=== PATIENT | male | born 1965 | race Caucasian/White ===

== ENCOUNTER 2022-05-20 19:11 | Inpatient (IN) | payer MEDICAID ==
[~2022-05-20] VITALS: Ht 177.8 cm; Wt 71.7 kg
--- NOTE | 2022-05-20 20:00 | NUR ---
PT [id number] FROM STREETS C/O LEFT SIDE HIP PAIN FROM ABSCESS. UNABLE TO AMBULATE D/T PAIN. PT IS A/O X 4, RR EVEN AND UNLABORED NO SOB NOTED. PT TO ER BED 12. PT CONNECTED TO CARDIAC AND POX MONITORS.
[2022-05-20] MEDS ORDERED: IOHEXOL-300 100 ML VIAL IV ONE (20:20)
[2022-05-20] MEDS ORDERED: VANCOMYCIN 1 GM in IV D5W 250 ML IV ONE (20:30)
[2022-05-20] MEDS ORDERED: PIPERACILLIN /TAZOBACTAM 3.375 G in IV D5W 50 ML IV ONE (20:30)
[2022-05-20] MEDS ORDERED: IV NS 0.9% 1,000 ML BAG IV ONE ×2 (20:30)
[2022-05-20] MEDS ORDERED: ONDANSETRON HCL/PF 4 MG/2 ML VIAL IVP ONE (20:30)
[2022-05-20] MEDS ORDERED: MORPHINE SULFATE INJ 2 MG/ML DISP.SYRIN IV ONE (20:30)
[2022-05-20] MEDS ORDERED: ONDANSETRON HCL/PF 4 MG/2 ML VIAL ONE (20:47)
[2022-05-20] MEDS ORDERED: PIPERACILLIN /TAZOBACTAM 3.375 G VIAL IV ONE (20:47)
[2022-05-20] MEDS ORDERED: MORPHINE SULFATE INJ 4 MG/ML DISP.SYRIN ONE (20:47)
--- NOTE | 2022-05-20 21:08 | NUR ---
COVID SWAB COLLECTED SENT TO LAB
--- NOTE | 2022-05-20 21:09 | NUR ---
PATIENT TAKEN TO CT
[2022-05-20 21:10] LABS: BASOPHILS % (AUTO) 0.2 % (0.0-2.0); EOSINOPHILS % (AUTO) 0.5 % (0.0-6.0); HEMATOCRIT 45 % (39-51); HEMOGLOBIN 15.1 g/dL (13.5-17.5); LYMPHOCYTES # (AUTO) 1.1 K/uL (0.8-4.8); LYMPHOCYTES % (AUTO) 10.7 % (20.0-44.0); MEAN CORPUSCULAR HGB CONC 34 g/dl (31.0-36.0); MEAN CORPUSCULAR VOLUME 85 fL (80-96); MONOCYTES # (AUTO) 0.9 K/uL (0.1-1.30); MONOCYTES % (AUTO) 8.9 % (2.0-12.0); NEUTROPHILS # (AUTO) 8.3 K/uL (1.8-8.9); NEUTROPHILS % (AUTO) 79.7 % (43.0-81.0); PLATELET COUNT (AUTO) 326 K/uL (150-450); RED BLOOD CELL COUNT(AUTO) 5.23 MIL/uL (4.5-6.0); WHITE BLOOD COUNT (AUTO) 10.5 K/uL (4.3-11.0)
[2022-05-20 21:40] LABS: ALANINE AMINOTRANSFERASE 57 U/L (12-78); ALBUMIN 2.7 g/dL (3.4-5.0); ALKALINE PHOSPHATASE 122 U/L (46-116); ASPARTATE AMINOTRANSFERASE 54 U/L (15-37); BILIRUBIN,DIRECT 0.2 mg/dL (0.0-0.2); BILIRUBIN,TOTAL 0.7 mg/dL (0.2-1.0); CALCIUM, SERUM 9.2 mg/dL (8.5-10.1); CARBON DIOXIDE 27 mmol/L (21-32); CHLORIDE 98 mmol/L (98-107); CREATININE 1.2 mg/dL (0.6-1.3); GLUCOSE 109 mg/dL (74-106); SODIUM SERUM 132 mmol/L (136-145); TOTAL PROTEIN, SERUM 8.9 g/dL (6.4-8.2)
[2022-05-20 21:51] LABS: UREA NITROGEN, BLOOD 23 mg/dL (7-18)
[2022-05-20] MEDS ORDERED: VANCOMYCIN 1 GM VIAL ONE (22:07)
[2022-05-20] MEDS ORDERED: MAG HYDROX/AL HYDROX/SIMETH 30 ML UDC PO PRN (23:30)
[2022-05-20] MEDS ORDERED: MAGNESIUM HYDROXIDE 30 ML UDC PO PRN (23:30)
[2022-05-20] MEDS ORDERED: Z GUARD REMEDY 4 OZ OINT TP PRN (23:30)
[2022-05-20] MEDS ORDERED: ACETAMINOPHEN 325 MG TABLET PO PRN (23:30)
[2022-05-20] MEDS ORDERED: ZOLPIDEM TARTRATE 5 MG TABLET PO PRN (23:30)
[2022-05-20] MEDS ORDERED: ONDANSETRON HCL/PF 4 MG/2 ML VIAL IVP PRN (23:30)
[2022-05-21] MEDS: HYDROCODONE/APAP 10/325MG TABLET PO PRN (00:04)
--- NOTE | 2022-05-21 00:04 | NUR ---
RECEIVING TEAM MEMBER AT PT'S BEDSIDE
--- NOTE | 2022-05-21 00:04 | NUR ---
EMMANUEL MCELROY INDUCTOR TESTER AT PT'S BEDSIDE
[2022-05-21] MEDS ORDERED: LORAZEPAM INJ 2 MG/ML VIAL IV PRN (01:30)
[2022-05-21] MEDS ORDERED: PIPERACILLIN /TAZOBACTAM 3.375 G in IV D5W 50 ML IV ONE (03:00)
[2022-05-21] MEDS ORDERED: HYDROMORPHONE 1 MG/1 ML DISP.SYRIN ONE (03:34)
[2022-05-21] MEDS ORDERED: PIPERACILLIN /TAZOBACTAM 3.375 G VIAL IV ONE (03:34)
[2022-05-21] MEDS: IV NS 0.9% 1,000 ML IV PRN ×2 (03:49→09:21)
[2022-05-21] MEDS: HYDROMORPHONE INJ 2 MG/ML DISP.SYRIN IV PRN ×5 (03:49→21:19)
[2022-05-21] MEDS ORDERED: HIV MED (08:11)
--- NOTE | 2022-05-21 08:11 | NUR ---
report given to Nolan CROUCH to continue care.
[2022-05-21 09:00] VITALS: BP 102/64
--- NOTE | 2022-05-21 09:22 | NUR ---
RN NOTES PT C/O OF SHARP LEFT HIP PAIN, 10/10 SCALE. PRN DILAUDID 1MG/0.5ML IVP ADMINISTERED AT 0920 . WILL CONTINUE TO MONITOR AND REASSESS PT.
--- NOTE | 2022-05-21 10:00 | NUR ---
MS RN ADMITTING NOTES ADMITTED A 57 Y/O MALE TO UNIT AT 0845 VIA GURNEY WITH DX OF LEFT HIP ABSCESS. PT IS A/O X4 AND ABLE TO MAKE NEEDS KNOWN. ORIENTED TO ROOM AND STAFF. V/S TAKEN, STABLE AND RECORDED. PT ON ROOM AIR, TOLERATING WELL, WITH NO ACUTE RESPIRATORY DISTRESS NOTED. IV ACCESS NOTED ON LEFT AC G# 20, IVF OF NS @ 125ML/HR STARTED, NO S/S OF INFILTRATION AT SITE NOTED. LUNGS CLEAR ON AUSCULTATION BILATERALLY. ABDOMEN SOFT, NON TENDER AND NON-DISTENDED WITH + BOWELS SOUNDS ON FOR QUADRANTS. PHOTOS OF SKIN ISSUES TAKEN AND FILED ON HIS CHART. SAFETY MEASURES IMPLEMENTED: BED PLACED IN LOWEST LOCKED POSITION WITH SR UP X2. TRAY TABLE AND CALL LIGHT W/I EASY REACH OF PT. WILL CONTINUE TO MONITOR PT.
[2022-05-21 10:30] LABS: BASOPHILS % (AUTO) 0.2 % (0.0-2.0); HEMATOCRIT 36 % (39-51); HEMOGLOBIN 12.3 g/dL (13.5-17.5); LYMPHOCYTES # (AUTO) 0.6 K/uL (0.8-4.8); LYMPHOCYTES % (AUTO) 6.6 % (20.0-44.0); MEAN CORPUSCULAR HGB CONC 34 g/dl (31.0-36.0); MEAN CORPUSCULAR VOLUME 84 fL (80-96); MONOCYTES # (AUTO) 0.8 K/uL (0.1-1.30); MONOCYTES % (AUTO) 8.4 % (2.0-12.0); NEUTROPHILS # (AUTO) 7.6 K/uL (1.8-8.9); NEUTROPHILS % (AUTO) 82.8 % (43.0-81.0); PLATELET COUNT (AUTO) 272 K/uL (150-450); WHITE BLOOD COUNT (AUTO) 9.2 K/uL (4.3-11.0)
[2022-05-21 10:44] LABS: CALCIUM, SERUM 8.1 mg/dL (8.5-10.1); CREATININE 1.2 mg/dL (0.6-1.3); MAGNESIUM 2.4 mg/dL (1.8-2.4); PHOSPHORUS 3.4 mg/dL (2.5-4.9); POTASSIUM 4.5 mmol/L (3.5-5.1)
[2022-05-21] MEDS: VANCOMYCIN 1 GM in IV D5W 250 ML IV SCH ×2 (10:55→21:38)
[2022-05-21] MEDS: PIPERACILLIN /TAZOBACTAM 3.375 G in IV D5W 50 ML IV SCH ×3 (12:10→23:19)
[2022-05-21 13:00] VITALS: BP 92/64
--- NOTE | 2022-05-21 13:42 | NUR ---
RN NOTES PT C/O OF SHARP LEFT HIP PAIN, 10/10 SCALE. PRN DILAUDID 1MG/0.5ML IVP ADMINISTERED AT 1340 . WILL CONTINUE TO MONITOR AND REASSESS PT.
--- NOTE | 2022-05-21 14:05 | NUR ---
SS consult: SS Consult requested for homelessness. The pt. is a 57-year-old male who is admitted to [facility] due to abscess on hip. Upon SS consult, the pt. is Alert & Oriented x 4 and makes good eye contact. The pt. appears disheveled with depressed mood and flat affect. Pt. denies SI/HI and denies hallucinations. LONDON explored pt.s living situation. Patient states he is currently experiencing homelessness since he left tiny homes about 6 months ago. LONDON explored pt.s drug & ETOH use. Pt. states he drinks beer and smokes weed but not often as he cant afford it. Pt. stated drugs and alcohol are not a problem for him. SW explored pt.s mental health Hx. Pt. states he was diagnosed with Schizophrenia about 20 years. Per pt. he has been prescribed Zyprexa but is not currently taking it as he ran out of medication. Per pt. was ambulatory but recently not able to walk due to abscess and otherwise is independent with all his ADLs. SW explored pt.s support system. Pt. states he has no support system. Pt. reports he receives SSI and food stamps. Plan: SW provided pt. with homeless resources and pt. accepted them. Pt. signed homeless waiver and it was placed in the pt.s chart. Pt. stated that he may possibly go to a motel once ready for discharge. LONDON spoke with Janet ragsdale who stated that pt. may possibly need SNF placement when ready for discharge. Pt. requested referral to [facility] [[address] [place] [phone]; ]. LONDON called and left voicemail. SW will follow up as needed. Year-round shelters: [place] [address] [place], [place] [id number] ; [facility] [place] [address] [place] [address]; [place] [facility] [address] [facility] [address] Hygiene: [facility] [address] [place] ; [place] [facility] [address] [facility] ; [facility] [address] . Food Resources: [place] [facility]- [address] [place]; Meet Each Need with Dignity ([facility]) [address] [place]; [facility] [address] [facility]; [facility] [address] [facility]. Mental Health resources provided: [facility] [address] [place], [place] [address] ; [facility] [address] [facility] [address], [place], [place] [phone] ; [place] [facility] [address] [place], [place] [phone] ; [facility] [place] [address] [place], [place] [address] Healthcare Clinics: [facility] [address] [facility], [address] [place]. [place] ; [facility] [address] [facility] [address] [place] [address]; [facility] [place] [address] [place] [address] [phone] Counseling--Outpatient [facility] [address] [facility], [address] [place], [place] [address] (Specializes in in-depth psychotherapy for emotional distress: anxiety, depression, interpersonal conflicts, life transitions, childhood abuse) [facility] [address] [place] [address] (Assist with solving problem marital difficulties, separation & divorce, aging parents, & grief, chronic & terminal illness) [facility] [address] [place] [address] (Deal with loss & grief, anxiety, marital difficulties) Homebound/Mental Health Services [address] [facility], [address] [place], [place] [address] (Provide in-home mental services to people who are incapable of leaving their homes) [facility] Elder[facility] [address] [place], [place] [phone] [facility] [place] [address] [place] [address] PSYCHIATRIC OUTPATIENT SERVICES [facility] Partial Hospitalization and Intensive Outpatient Program (Managed Care and [place] Only)[address] [facility] [phone] [facility] Partial Hospitalization and Outpatient [id number] [place], [place] [phone] [facility] [place] [id number] [place], [place] [phone] [facility] Partial Hospitalization and Outpatient [address] [facility], [phone] Substance Abuse resources provided included: [facility] Substance Abuse Self-Helpline ([facility]) ; [facility] [address] [facility]. [place] [address] ; [facility] [address] [facility] [address] ; [facility] [address] [address] ; [facility] [address] [facility] [id number] ; [facility] [address] [place] [facility] [phone] ; [facility] [address] [facility] [phone] ; [facility]pl[facility] ; [facility] ; [facility]; [facility] [place]; [facility] [place]; [facility] [address]; [facility] [place]; [facility] [place]; [facility] [place]; [facility], [facility]. [place]; Alcoholics Anonymous -SFV; Uf-Vgzr-Zczdjsi ; Marijuana Anonymous -[facility]; Narcotics Anonymous www.na.org;
[2022-05-21 16:15] VITALS: BP 94/56
--- NOTE | 2022-05-21 17:35 | NUR ---
RN NOTES PT C/O OF SHARP LEFT HIP PAIN, 10/10 SCALE. PRN DILAUDID 1MG/0.5ML IVP ADMINISTERED AT 1731 . WILL CONTINUE TO MONITOR AND REASSESS PT.
--- NOTE | 2022-05-21 18:39 | NUR ---
RN NOTES PT SEEN AND EVALUATED BY DR HILL WITH ORDER TO OBTAIN CONSENT FOR INCISION, DEBRIDEMENT AND DRAINAGE OF LEFT UPPER, LATERAL LEG/HIP. PT SIGNED ALL CONSENTS AND FILED ON HIS CHART. NPO TO BE ENFORCED AFTER MIDNIGHT. WILL ENDORSE TO NIGHTS SHIFT NURSE.
--- NOTE | 2022-05-21 18:50 | NUR ---
MS RN CLOSING NOTES RECEIVED PATIENT IN BED WATCHING TV, A/O X4 ABLE TO MAKE NEEDS KNOWN. LEFT HIP ABSCESS. ON ROOM AIR, TOLERATING WELL. NO NOTED S/SX OF SOB/DISTRESS. IV ACCESS NOTED ON LEFT AC G# 20, IVF OF NS @ 125ML/HR STARTED, NO S/S OF INFILTRATION AT SITE NOTED. PATIENT'S PAIN LEVEL IS MANAGED BY PRN PAIN MEDS FOR NOW. ALL DUE MEDS GIVEN. SAFETY MEASURES KEPT IN PLACE. BED LOCKED AND IN LOWEST POSITION, SIDE RAILS UP X2, CALL LIGHT WITHIN REACH. ALL NEEDS AND CARE ATTENDED WELL. PATIENT WAS SEEN BY DR HILL, SECURED CONSENTS FOR THE I/D/D OF THE LEFT HIP ABSCESS TOMORROW AND REINFORCED NPO BY MIDNIGHT. PATIENT VERBALIZED UNDERSTANDING. WILL ENDORSE TO THE PHOTOGRAMMETRY AIRPLANE PILOT NURSE.
--- NOTE | 2022-05-21 19:35 | NUR ---
MS RN NOTES RECEIVED ON BED A/ X4,BREATHING REGULAR,NOT IN ANY FORM OF DISTRESS,IVF NS AT 125ML/HR RATE INFUSING WELL ON LEFT AC SALINE LOCK,LEFT HIP ABSCESS DRAINS SERO SANGUINOUS,PLAN INCISION AND DRAINAGE WITH DEBRIDEMENT TOMORROW BY DR HILL.CONSENT ON CHART.INSTRUCTED NPO POST MIDNIGHT FOR THE PROCEDURE.CALL LIGHT IN REACH,NEEDS ANTICIPATED.
[2022-05-21 20:00] VITALS: BP 94/45
[2022-05-21 20:29] VITALS: BP 94/45
--- NOTE | 2022-05-21 21:19 | NUR ---
MS RN NOTES PAIN MANAGEMENT C/O RIGHT HIP PAIN 8/10 ON PAIN SCALE,DILAUDID 1MG IV GIVEN ORDERED.
[2022-05-21] MEDS ORDERED: LORAZEPAM INJ 2 MG/ML VIAL IV ONE (23:30)
[2022-05-22] MEDS: HYDROMORPHONE INJ 2 MG/ML DISP.SYRIN IV PRN ×5 (01:28→22:34)
--- NOTE | 2022-05-22 01:28 | NUR ---
MS RN NOTES AWAKE,[place] HIPPAIN 8/10 ON PAIN SCALE,DILAUDID 1MG IV GIVEN ORDERED.
[2022-05-22] MEDS: PIPERACILLIN /TAZOBACTAM 3.375 G in IV D5W 50 ML IV SCH ×4 (05:19→23:14)
--- NOTE | 2022-05-22 05:27 | NUR ---
MS RN NOTES AWAKE,HAVING PAIN ON LEFT HIP,8/10 ON PAIN SCALE,DILAUDID 1MG IV GIVEN ORDERED.
[2022-05-22] MEDS: IV NS 0.9% 1,000 ML IV PRN (06:38)
--- NOTE | 2022-05-22 07:00 | NUR ---
MS CROUCH OPENING NOTES PATIENT LAYING IN BED, A/O X 4, ABLE TO MAKE NEEDS KNOWN. LEFT HIP ABSCESS PRESENT WITH PATIENT REFUSING DRESSING PLACEMENT AT THIS TIME. L AC # [address] CLEAN, INTACT, AND INFUSING NS @ 125 ML/HR. SAFETY MEASURES IN PLACE: BED IN LOWEST LOCKED POSITION, SIDE RAILS UP X 2, CALL LIGHT WITHIN REACH. NPO STATUS PLACED FOR UPCOMING LEFT HIP DEBRIDEMENT AT 1400. WILL CONTINUE TO MONITOR. Addendum: 05/22/22 at 1314 by BEN HERNANDEZ RN PATIENT TOLERATING WELL ON ROOM AIR WITH NO S/S RESPIRATORY DISTRESS.
--- NOTE | 2022-05-22 07:03 | NUR ---
MS RN NOTES KEPT NPO FOR INCISION AND DRAINAGE WITH DEBRIDEMENT LEFT HIP ABSCESS AT [address] HILL,CONSENT ON CHART.,NO DISTRESSCALL LIGHT IN REACH,NEEDS ATTENDED.
[2022-05-22 07:22] LABS: CREATININE 1.1 mg/dL (0.6-1.3); MAGNESIUM 2.3 mg/dL (1.8-2.4); PHOSPHORUS 3.5 mg/dL (2.5-4.9); POTASSIUM 4.3 mmol/L (3.5-5.1)
[2022-05-22 07:37] LABS: BASOPHILS % (AUTO) 0.2 % (0.0-2.0); EOSINOPHILS % (AUTO) 6.7 % (0.0-6.0); HEMATOCRIT 35 % (39-51); HEMOGLOBIN 11.6 g/dL (13.5-17.5); LYMPHOCYTES # (AUTO) 0.8 K/uL (0.8-4.8); LYMPHOCYTES % (AUTO) 14.7 % (20.0-44.0); MEAN CORPUSCULAR HGB CONC 33 g/dl (31.0-36.0); MEAN CORPUSCULAR VOLUME 85 fL (80-96); MONOCYTES # (AUTO) 0.6 K/uL (0.1-1.30); MONOCYTES % (AUTO) 10.5 % (2.0-12.0); NEUTROPHILS # (AUTO) 3.7 K/uL (1.8-8.9); NEUTROPHILS % (AUTO) 67.9 % (43.0-81.0); PLATELET COUNT (AUTO) 255 K/uL (150-450); RED BLOOD CELL COUNT(AUTO) 4.11 MIL/uL (4.5-6.0); WHITE BLOOD COUNT (AUTO) 5.5 K/uL (4.3-11.0)
[2022-05-22] MEDS: HYDROCODONE/APAP 10/325MG TABLET PO PRN ×2 (07:47→16:16)
[2022-05-22 08:00] VITALS: BP 90/46
[2022-05-22] MEDS: VANCOMYCIN 1 GM in IV D5W 250 ML IV SCH ×2 (09:27→19:27)
--- NOTE | 2022-05-22 09:39 | NUR ---
WOUND CARE CONSULT: PT UNAVAILABLE AT THIS TIME (OUT OF HIS ROOM). PER RN, PT SCHEDULED FOR PROCEDURE WITH GENERAL SURGEON. DEFER TO GENERAL SURGEON.
--- NOTE | 2022-05-22 11:00 | NUR ---
MS RN NOTES PATIENT IV SITE FOUND TO BE INFILTRATED, IV LINE REMOVED. PATIENT REFUSING PERIPHERAL IV INSERTION AT THIS TIME, ATTENDING MD NOTIFIED.
[2022-05-22] MEDS ORDERED: MIDAZOLAM HCL 2 MG/2ML VIAL ONE (13:04)
[2022-05-22] MEDS ORDERED: HYDROMORPHONE INJ 2 MG/ML DISP.SYRIN ONE (13:04)
[2022-05-22] MEDS ORDERED: FAMOTIDINE/PF INJ 20 MG/2 ML VIAL IV ONE (13:11)
--- NOTE | 2022-05-22 16:00 | NUR ---
MS CROUCH NOTES PATIENT RETURNED FROM SURGERY WITH DRESSING IN PLACE ON LEFT HIP (DRESSING CHANGES TO BEGIN Wednesday05/25/22), SARINA MIDLINE IN PLACE CLEAN AND INTACT WITH NS INFUSING @ 125ML/HR. Addendum: 05/22/22 at 1631 by BEN HERNANDEZ RN SARINA MIDLINE WAS PLACED BY ATTENDING PRIOR TO PROCEDURE. Addendum: 05/22/22 at 1919 by BEN HERNANDEZ RN SARINA PICC IS IN PLACE, CLEAN AND INTACT WITH NS INFUSING @ 125 ML/HR. WAS PLACED BY ATTENDING MD PRIOR TO PROCEDURE.
--- NOTE | 2022-05-22 16:28 | NUR ---
MEDICATIONS ADMINISTERED IN OR: ZOSYN 3.125 MG IV WAS ADMINISTERED IN OR AT 1426 AND DILAUDED 2 MG IVP WAS ADMINISTERED IN OR AT 1410.
--- NOTE | 2022-05-22 19:10 | NUR ---
RN opening notes Received Pt in bed comfortably watching TV. Pt is alert and orientedX4. On room air. No SOB. no S/S of distress noted. S/P I&D L hip/leg. SARINA Picc line is clean, intact and infusing well NS@ 125 ml/hr. L hip sx dressing is clean, intact and dry. Safety precautions is maintained. bed at low position, brakes locked, side railsupX2, hob elevated, bed alarm is on, urinal at the bed side and call light is within reach. Will continue to monitor.
--- NOTE | 2022-05-22 19:20 | NUR ---
MS RN CLOSING NOTES PATIENT LAYING IN BED, A/O X 4, ABLE TO MAKE NEEDS KNOWN. LEFT HIP DEBRIDEMENT PERFORMED WITH DRESSING IN PLACE. SARINA PICC IN PLACE, CLEAN AND INTACT WITH NS INFUSING @ 125 ML/HR. SAFETY MEASURES IN PLACE: BED IN LOWEST LOCKED POSITION, SIDE RAILS UP X 2, CALL LIGHT WITHIN REACH. ALL NEEDS MET. WILL ENDORSE TO CAFE HELPER FOR ADENIKE.
[2022-05-22 20:00] VITALS: BP 102/52
[2022-05-22 20:21] VITALS: BP 88/48
[2022-05-22 20:40] VITALS: BP 102/52
[2022-05-22 22:11] VITALS: BP 102/58
--- NOTE | 2022-05-22 22:34 | NUR ---
RN notes Pt is complaining of pain on L hip 10/10 on pain scale and requesting pain med. administered dilaudid 1mg/iv/prn as ordered for pain. safety precautions is maintained. will continue to monitor.
[2022-05-23] MEDS: HYDROMORPHONE INJ 2 MG/ML DISP.SYRIN IV PRN ×6 (03:33→23:21)
[2022-05-23] MEDS: PIPERACILLIN /TAZOBACTAM 3.375 G in IV D5W 50 ML IV SCH ×3 (05:00→17:05)
--- NOTE | 2022-05-23 06:00 | NUR ---
RN notes Pt refuses am lab. Explained risks and benefits. Pt keep refusing. Pt get agitated easily. Charge nurse is aware and informed.
[2022-05-23] MEDS: VANCOMYCIN 1 GM in IV D5W 250 ML IV SCH ×3 (06:36→20:47)
--- NOTE | 2022-05-23 06:40 | NUR ---
RN closing notes Pt is resting in bed comfortably. Pt is alert and orientedX4. On room air. No SOB. no S/S of distress noted. Vs is stable. Routine meds were given as ordered including prn meds. SARINA Picc line is clean, intact and infusing well NS@ 125 ml/hr. L hip sx dressing is clean, intact and dry. Kept Pt clean, dry and comfortable. Safety precautions is maintained. bed at low position, brakes locked, side railsupX2, hob elevated, bed alarm is on, urinal at the bed side and call light is within reach. Will endorse to am nurse for ADENIKE.
--- NOTE | 2022-05-23 07:00 | NUR ---
MS RN OPENING NOTES PATIENT LAYING IN BED, A/O X 4, ABLE TO MAKE NEEDS KNOWN. TOLERATING WELL ON ROOM AIR WITH NO S/S RESPIRATORY DISTRESS. NO COMPLAINTS OF PAIN OR DISCOMFORT AT THIS TIME. SARINA PICC CLEAN, INTACT, AND INFUSING NS @ 125 ML/HR. L HIP DRESSING C/D/I. SAFETY MEASURES IN PLACE: BED IN LOWEST LOCKED POSITION, SIDE RAILS UP X 2, CALL LIGHT WITHIN REACH. WILL CONTINUE TO MONITOR.
[2022-05-23 08:00] VITALS: BP 100/58
[2022-05-23 09:30] LABS: BASOPHILS % (AUTO) 0.1 % (0.0-2.0); EOSINOPHILS % (AUTO) 3.6 % (0.0-6.0); HEMATOCRIT 34 % (39-51); HEMOGLOBIN 11.6 g/dL (13.5-17.5); LYMPHOCYTES % (AUTO) 18.6 % (20.0-44.0); MEAN CORPUSCULAR HGB CONC 34 g/dl (31.0-36.0); MEAN CORPUSCULAR VOLUME 85 fL (80-96); MONOCYTES # (AUTO) 0.4 K/uL (0.1-1.30); MONOCYTES % (AUTO) 6.9 % (2.0-12.0); NEUTROPHILS # (AUTO) 3.7 K/uL (1.8-8.9); NEUTROPHILS % (AUTO) 70.8 % (43.0-81.0); PLATELET COUNT (AUTO) 295 K/uL (150-450); RED BLOOD CELL COUNT(AUTO) 4.06 MIL/uL (4.5-6.0); WHITE BLOOD COUNT (AUTO) 5.2 K/uL (4.3-11.0)
[2022-05-23 09:45] LABS: CALCIUM, SERUM 7.8 mg/dL (8.5-10.1); CREATININE 1.1 mg/dL (0.6-1.3); MAGNESIUM 2.4 mg/dL (1.8-2.4); PHOSPHORUS 2.2 mg/dL (2.5-4.9); POTASSIUM 3.7 mmol/L (3.5-5.1)
[2022-05-23] MEDS ORDERED: K PHOS NEUTRAL 250 MG TABLET PO ONE (11:30)
[2022-05-23] MEDS: IV NS 0.9% 1,000 ML IV PRN (12:57)
[2022-05-23 16:00] VITALS: BP 114/62
--- NOTE | 2022-05-23 18:48 | NUR ---
MS RN CLOSING NOTES PATIENT LAYING IN BED, A/O X 4, ABLE TO MAKE NEEDS KNOWN. TOLERATING WELL ON ROOM AIR WITH NO S/S RESPIRATORY DISTRESS. NO COMPLAINTS OF PAIN OR DISCOMFORT AT THIS TIME. SARINA PICC CLEAN, INTACT, AND INFUSING NS @ 125 ML/HR. L HIP DRESSING C/D/I. SAFETY MEASURES IN PLACE: BED IN LOWEST LOCKED POSITION, SIDE RAILS UP X 2, CALL LIGHT WITHIN REACH. ALL NEEDS MET. WILL ENDORSE TO EMBALMER APPRENTICE FOR ADENIKE.
--- NOTE | 2022-05-23 19:00 | NUR ---
MS RN NOTE I WAS INFORMED BY PHARMACY DURING THE SHIFT THAT PATIENT WOULD BE RECEIVING A VANCOMYCIN TROUGH PRIOR TO ADMINISTRATION OF THE 1900 DOSE, BUT NO EVENING TROUGH WAS DRAWN, AND THE MOST RECENT TROUGH VALUE WAS HIGH (41). I WILL ENDORSE TO FIRER LOW PRESSURE FOR ADENIKE.
[2022-05-23 20:00] VITALS: BP 119/67
--- NOTE | 2022-05-23 20:24 | NUR ---
RN NOTES PRN DILAUDID ADMINISTERED FO9/10 PAIN ON A NUMERIC SCALE TOLERATED WELL. WILL CONTINUE TO MONITOR.
--- NOTE | 2022-05-23 23:18 | NUR ---
RN NOTES PRN DILAUDID ADMINISTERED FO9/10 PAIN ON A NUMERIC SCALE TOLERATED WELL. WILL CONTINUE TO MONITOR.
[2022-05-24] MEDS: PIPERACILLIN /TAZOBACTAM 3.375 G in IV D5W 50 ML IV SCH ×5 (00:03→23:29)
[2022-05-24] MEDS: HYDROMORPHONE INJ 2 MG/ML DISP.SYRIN IV PRN ×7 (02:27→22:19)
--- NOTE | 2022-05-24 02:39 | NUR ---
RN NOTES PRN DILAUDID ADMINISTERED FOR 9/10 PAIN ON A NUMERIC SCALE TOLERATED WELL. WILL CONTINUE TO MONITOR.
--- NOTE | 2022-05-24 05:46 | NUR ---
RN NOTES PRN DILAUDID ADMINISTERED FOR 9/10 PAIN ON A NUMERIC SCALE TOLERATED WELL. WILL CONTINUE TO MONITOR.
[2022-05-24 05:55] LABS: BASOPHILS % (AUTO) 0.1 % (0.0-2.0); EOSINOPHILS % (AUTO) 8.1 % (0.0-6.0); HEMATOCRIT 33 % (39-51); HEMOGLOBIN 11.1 g/dL (13.5-17.5); LYMPHOCYTES # (AUTO) 0.9 K/uL (0.8-4.8); LYMPHOCYTES % (AUTO) 23.5 % (20.0-44.0); MEAN CORPUSCULAR HGB CONC 33 g/dl (31.0-36.0); MEAN CORPUSCULAR VOLUME 85 fL (80-96); MONOCYTES # (AUTO) 0.4 K/uL (0.1-1.30); MONOCYTES % (AUTO) 11.5 % (2.0-12.0); NEUTROPHILS # (AUTO) 2.1 K/uL (1.8-8.9); NEUTROPHILS % (AUTO) 56.8 % (43.0-81.0); PLATELET COUNT (AUTO) 277 K/uL (150-450); RED BLOOD CELL COUNT(AUTO) 3.91 MIL/uL (4.5-6.0); WHITE BLOOD COUNT (AUTO) 3.8 K/uL (4.3-11.0)
[2022-05-24 06:46] LABS: CALCIUM, SERUM 7.6 mg/dL (8.5-10.1); CREATININE 1.1 mg/dL (0.6-1.3); MAGNESIUM 2.1 mg/dL (1.8-2.4); POTASSIUM 3.7 mmol/L (3.5-5.1)
[2022-05-24] MEDS: VANCOMYCIN 1 GM in IV D5W 250 ML IV SCH ×2 (06:54→18:55)
--- NOTE | 2022-05-24 06:58 | NUR ---
MS RN CLOSING NOTES PATIENT LAYING IN BED, A/O X 4, ABLE TO MAKE NEEDS KNOWN. TOLERATING WELL ON ROOM AIR WITH NO S/S RESPIRATORY DISTRESS. NO COMPLAINTS OF PAIN OR DISCOMFORT AT THIS TIME. SARINA PICC CLEAN, INTACT RUNNING VANCO AT THIS TIME. L HIP DRESSING C/D/I. SAFETY MEASURES IN PLACE: BED IN LOWEST LOCKED POSITION, SIDE RAILS UP X 2, CALL LIGHT WITHIN REACH. ALL NEEDS MET. PRN PAIN MANAGEMENT PROVIDED NEEDED. WILL ENDORSE CARE TO DAY SHIFT NURSE.
--- NOTE | 2022-05-24 07:00 | NUR ---
MS RN OPENING NOTES PATIENT LAYING IN BED, A/O X 4, ABLE TO MAKE NEEDS KNOWN. TOLERATING WELL ON ROOM AIR WITH NO S/S RESPIRATORY DISTRESS. NO COMPLAINTS OF PAIN OR DISCOMFORT AT THIS TIME. SAIRNA PICC CLEAN, INTACT, AND INFUSING VANCOMYCIN. L HIP DRESSING C/D/I. SAFETY MEASURES IN PLACE: BED IN LOWEST LOCKED POSITION, SIDE RAILS UP X 2, CALL LIGHT WITHIN REACH. WILL CONTINUE TO MONITOR.
[2022-05-24 08:31] VITALS: BP 123/65
[2022-05-24 16:04] VITALS: BP 132/67
--- NOTE | 2022-05-24 18:46 | NUR ---
MS RN CLOSING NOTES PATIENT LAYING IN BED, A/O X 4, ABLE TO MAKE NEEDS KNOWN. TOLERATING WELL ON ROOM AIR WITH NO S/S RESPIRATORY DISTRESS. NO COMPLAINTS OF PAIN OR DISCOMFORT AT THIS TIME. SARINA PICC CLEAN, INTACT, AND FLUSHING WELL. L HIP DRESSING C/D/I. SAFETY MEASURES IN PLACE: BED IN LOWEST LOCKED POSITION, SIDE RAILS UP X 2, CALL LIGHT WITHIN REACH. ALL NEEDS MET. WILL ENDORSE TO SOFTWARE ENGINEERING SPECIALIST FOR ADENIKE.
--- NOTE | 2022-05-24 18:56 | NUR ---
VANCOMYCIN HELD AT 1900 DUE TO PATIENT REFUSING VANCO TROUGH BLOOD DRAW
--- NOTE | 2022-05-24 19:44 | NUR ---
MS RN OPENING NOTES RECEIVED PATIENT AWAKE IN BED. A/O X 4 AND ABLE TO MAKE NEEDS KNOWN. STABLE ON ROOM AIR. NO SOB OR S/S OF RESPIRATORY DISTRESS. BREATHING EVEN AND UNLABORED. IV ACCESS SARINA PICC, INTACT AND PATENT. L HIP DRESSING C/D/I. SAFETY PRECAUTIONS IN PLACE. BED IN LOWEST LOCKED POSITION, SIDE RAILS UP X 2, HOB ELEVATED, AND CALL LIGHT AND TABLE WITHIN REACH. ALL NEEDS MET AT THIS TIME.
[2022-05-24 20:00] VITALS: BP 133/71
--- NOTE | 2022-05-24 22:19 | NUR ---
RN NOTE PT COMPLAINED OF PAIN 10/ OF L HIP. OFFERED PT NORCO BUT PT REFUSED AND STATED, "I ONLY WANT THE DILAUDID RIGHT NOW, MAYBE I WILL TAKE THE NORCO LATER". EDUCATED PT AND PT STILL REFUSED NORCO. ADMINISTERED DILAUDID 1.5 MG FOR SEVERE PAIN ORDERED. CHARGE NURSE CLEMENTINA KOCH.
[2022-05-25] MEDS: PIPERACILLIN /TAZOBACTAM 3.375 G in IV D5W 50 ML IV SCH ×2 (05:05→05:15)
--- NOTE | 2022-05-25 05:15 | NUR ---
RN NOTE WENT TO ADMINISTER IV ZOSYN. PT STATED "I'M IN TOO MUCH PAIN, I DON'T WANT IT". OFFERED PAIN MEDICATION X2. PT REFUSED PAIN MEDICATION AT THIS TIME. EXPLAINED RISKS AND CONSEQUENCES TO REFUSING IV ANTIBIOTICS. PT SHOUTED "I'LL FOREGO IT, I'LL FOREGO IT". PT ALSO REFUSED PICTURES TO BE TAKEN OF HIS WOUNDS ALL SHIFT. ALL OTHER NEEDS MET AT THIS TIME.
[2022-05-25] MEDS: VANCOMYCIN 1 GM in IV D5W 250 ML IV SCH (06:35)
--- NOTE | 2022-05-25 06:35 | NUR ---
RN NOTE PT REFUSED VANCO TROUGH LAST NIGHT AND REFUSED VANCO THIS MORNING. WHEN ASKED WHY PT IS REFUSING IV ANTIBIOTICS, PT STATED THAT " I WILL BE LEAVING TODAY AND THEY ARE GOING TO PRESCRIBE ME PILL ANTIBIOTICS". EXPLAINED DIFFERENCE BETWEEN IV AND PO MEDICATION AND THE IMPORTANCE OF TAKING ALL SCHEDULED ANTIBIOTICS AND PT STILL REFUSED. CHARGE NURSE CLEMENTINA KOCH.
--- NOTE | 2022-05-25 06:55 | NUR ---
MS RN CLOSING NOTES PATIENT AWAKE IN BED. A/O X 4 AND ABLE TO MAKE NEEDS KNOWN. STABLE ON ROOM AIR. NO SOB OR S/S OF RESPIRATORY DISTRESS. BREATHING EVEN AND UNLABORED. IV ACCESS SARINA PICC, INTACT AND PATENT. L HIP DRESSING C/D/I. PT REFUSED SKIN ASSESSMENT PICTURES. CHARGE NURSE CLEMENTINA AWARE. SAFETY PRECAUTIONS IN PLACE AT ALL TIMES. BED IN LOWEST LOCKED POSITION, SIDE RAILS UP X 2, HOB ELEVATED, AND CALL LIGHT AND TABLE WITHIN REACH. ALL NEEDS MET AT THIS TIME AND WILL ENDORSE TO ONCOMING NURSE FOR ADENIKE.
--- NOTE | 2022-05-25 07:30 | NUR ---
MS RN OPENING NOTES RECEIVED PATIENT AWAKE IN BED. A/O X 4 AND ABLE TO MAKE NEEDS KNOWN. ON ROOM AIR. NO SOB OR DISTRESS. BREATHING EVEN AND UNLABORED. IV ACCESS SARINA PICC, INTACT AND PATENT. L HIP DRESSING C/D/I. SAFETY PRECAUTIONS IN PLACE. BED IN LOWEST LOCKED POSITION, SIDE RAILS UP X 2, HOB ELEVATED, AND CALL LIGHT AND TABLE WITHIN REACH. WILL CONTINUE TO MONITOR
--- NOTE | 2022-05-25 10:48 | NUR ---
AMA AT 1045 PATIENT WAS RESTLESS, ANXIOUS AND AGITATED. SCREAMING AND YELLING, CURSING ALL THE STAFF. PATIENT WANTED TO LEAVE AMA, PULLED OUT HIS PICC LINE. PATIENT HAS BEEN UNCOOPERATIVE WITH ALL THE TREATMENTS LIKE VITAL SIGNS, IV ABX AND ETC. HE ALSO REFUSED HIS PHOTOS (WOUNDS) TO BE TAKEN. ADRIÁN DIETRICH, PHD, FERNANDEZ CASTELLON AND VERA CRUZ WAS MADE AWARE. PATIENT SIGNED AMA FORM AND WAS PLACED IN THE CHART. I WAS ABLE TO CHANGE HIS DRESSING ON THE LEFT UPPER LEG AND GAVE HIM SUPPLIES FOR DRESSING CHANGE.
== END 2022-05-25 10:45 | disposition left against medical advice (07) | DRG 710 ==
LOC: ER 19:18 → TRANSITION 05-21 00:57 → MED 05-21 07:29
PROVIDERS: ADMIT Nurse Practitioner Acute Care; ATTEND Nurse Practitioner Acute Care
PROC: 0KDP0ZZ Extraction of Left Hip Muscle, Open Approach (ICD-10-PCS; principal; 2022-05-22)
PROC: 0J9M3ZX Drainage of Left Upper Leg Subcutaneous Tissue and Fascia, Percutaneous Approach, Diagnostic (ICD-10-PCS; 2022-05-22)
DX: A41.9 Sepsis, unspecified organism (principal); E44.1 Mild protein-calorie malnutrition; E87.1 Hypo-osmolality and hyponatremia; E88.09 Other disorders of plasma-protein metabolism, not elsewhere classified; L02.416 Cutaneous abscess of left lower limb; M87.852 Other osteonecrosis, left femur; F11.10 Opioid abuse, uncomplicated; E86.0 Dehydration; Z59.00 Homelessness unspecified; E86.1 Hypovolemia; Z91.19 Patient's noncompliance with other medical treatment and regimen; Z72.89 Other problems related to lifestyle; F17.210 Nicotine dependence, cigarettes, uncomplicated; Z20.822 Contact with and (suspected) exposure to COVID-19
CPT/HCPCS: 36410; 36415; 71045-TC; 72193-TC; 80048-TC; 80076-TC; 80202-TC; 83605-TC; 83735-TC; 84100-TC; 84484-TC; 85025-TC; 85730-TC; 87040-TC; 87081-TC; A4217; A6253; A6403; C9803; G0378; J1170; J2060; J2250; J2270; J2405; J2543; J3370; J3490; J7030; J7040; J7060; Q9967

== ENCOUNTER 2022-11-17 16:28 | Emergency (ER) | payer MEDICAID ==
[~2022-11-17] VITALS: Ht 175.3 cm; Wt 72.6 kg
--- NOTE | 2022-11-17 16:30 | NUR ---
BIB RA [address] C/O R ANKLE PAIN S/P TWISTING HIS ANKLE WHILE WALKING 2 HOURS AGO.
--- NOTE | 2022-11-17 17:12 | NUR ---
BROTHER, LINSEY - [phone]. GIRLFRIEND, COLE - [phone]
--- NOTE | 2022-11-17 17:20 | NUR ---
x-ray tech at bedside
[2022-11-17] MEDS ORDERED: KETO10TA2 PO (17:51)
[2022-11-17] MEDS ORDERED: HYDR-4209 PO (17:51)
--- NOTE | 2022-11-17 18:15 | NUR ---
Patient discharged to home in stable condition. Written and verbal after care instructions given. Patient verbalizes understanding of instruction.
[2022-11-17 19:02] VITALS: BP 130/80
== END 2022-11-17 18:15 | disposition home or self-care (01) ==
LOC: ER 16:31
DX: S82.431A Displaced oblique fracture of shaft of right fibula, initial encounter for closed fracture (principal); F17.200 Nicotine dependence, unspecified, uncomplicated; Z59.00 Homelessness unspecified; Z79.899 Other long term (current) drug therapy; X50.1XXA Overexertion from prolonged static or awkward postures, initial encounter; Y93.89 Activity, other specified; Y92.89 Other specified places as the place of occurrence of the external cause; Y99.8 Other external cause status
CPT/HCPCS: 73610-TC